=== PATIENT | female | born 1995 ===

== ENCOUNTER 2024-09-27 00:09 | Emergency (ER) | payer SELFPAY ==
[2024-09-27 00:09] VITALS: BP 127/92; PULSE 95; RESP 18; TEMP 36.8; O2SAT 98
--- NOTE | 2024-09-27 00:54 | ED.RN ---
Pt stated to this RN that she needed to grab wallet from car. Pt left department, has not retuned. Security notified.
--- NOTE | 2024-09-27 01:07 | ED.RN ---
patient walks back into ED wanted to be seen now. Pt was taken back to ED room.
[2024-09-27 01:09] VITALS: BMI 27.1
[2024-09-27 01:12] VITALS: BP 120/77; PULSE 74; RESP 18; O2SAT 99
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
--- NOTE | 2024-09-27 01:58 | ED.RN ---
This RN provided patient with detox program rules sheet. After this RN read all twelve rules, pt became tearful. Pt requested time to think about decision. When this RN checked on pt to see final decision pt stated I can't go five days without talking to my boyfriend. Charge nurse and Doctor notified, discharge ordered for pt.
== END 2024-09-27 02:01 | disposition home or self-care (01) ==
PROVIDERS: Emergency Provider Emergency Medicine; Visit Provider Emergency Medicine
DX: F11.10 Opioid abuse, uncomplicated (principal); F17.210 Nicotine dependence, cigarettes, uncomplicated
CPT/HCPCS: 99282